=== PATIENT | male | born 1990 | race Caucasian/White ===

== ENCOUNTER 2017-04-01 17:24 | Emergency (ER) | payer OTHER ==
[2017-04-01 17:30] VITALS: BP 122/74; BMI 27.1
--- NOTE | 2017-04-01 18:18 | DR.GENAD ---
HPI - PCP Primary Care Physician: NFD - HPI Comment HPI Comment: CELLULITIS PRWESENT. NO FEVER. REDNESS INCREASING. - Complaint/Symptoms Chief Complaint Doctors Comments: LACERATIN RIGHT KNEE. Chief Complaint:: PT C/O ABCESS TO HIS RIGHT KNEE ....THAT STARTED A FEW DAYS AGO PT DOES NOT KNOW WHAT CAUSED IT .. HX STAPH.. Self Treatment fo Chief Complaint: PTS STATES PAIN HAS BEEN GETTING WORSE.. - Nurses notes reviewed Nurses Notes Review: Yes - Source History Provided: Patient - Mode of Arrival Mode of Arrival: Ambulatory - Timing Onset of Chief Complaint: 03/28/17 - Duration Duration: Constant Duration: Days - Severity Severity: Moderate PMH - PMH Past Medical History: No Past Surgical History: No Surgical History: No History - Family History History of Family Medical Conditions: Yes Family Medical History: Diabetes Mellitus, Cancer, NC, Coronary Artery Disease, Heart Failure, Sudden Cardiac , Hypertension - Social History Does patient currently use any type of tobacco product: No Have you used tobacco products in the last 12 months: No Type of Tobacco Use: None Does any household member use tobacco: No Alcohol Use: None Do you use any recreational Drugs:: No Lives With: Family Lives Where: Home - infectious screening In the last 2 months have you had wt loss of >10#?: NO Have you had fever, night sweats or hemotysis?: No Have you traveled outside the country in the last 6 months?: No Isolation: Standard ROS - Review of Systems Constitutional: No Symptoms Reported Eyes: No Symptoms Reported ENTM: No Symptoms Reported Respiratoy: No Symptoms Reported Cardiovascular: No Symptoms Reported Gastrointestinal/Abdominal: No Symptoms Reported Genitourinary: No Symptoms Reported Neurological: No Symptoms Reported Musculoskeletal: No Symptoms Reported, Right, Leg, Knee (PAIN AND REDNESS.) Integumentary: Other (REDNESS AND PAIN RIGHT KNEE.) Hematologic/Lymphatic: No Symptoms Reported Endocrine: No Symptoms Reported All Other Systems: Reviewed and Negative PE - Vital Signs Vitals: Temperature 98.4 F Pulse Rate 60 Respiratory Rate 18 Blood Pressure 122/74 O2 Sat by Pulse Oximetry 96 - General Limitations: No Limitations General Appearance: In No Apparent Distress - Head Head Exam: Normal Inspection - Eyes Eye exam: Normal Appearance - ENT ENT Exam: Normal External Ear Exam External Ear Exam: Normal External Inspection TM/Canal Exam: Bilateral Normal Nose Exam: Normal Nose Exam Mouth Exam: Normal Inspection Throat Exam: Normal Inspection - Neck Neck Exam: Trachea Midline - Chest Chest Inspection: Symmetric Chest Wall Rise - Respiratory Respiratory Exam: Normal Lung Sounds Bilat Respiratory Exam: Bilateral Clear to Auscultation - Cardiovascular Cardiovascular Exam: Regular Rate, Normal Rhythm, Normal Heart Sounds - Abdominal Exam Abdominal Exam: Normal Bowel Sounds, Soft. negative: Tenderness - Extremities Extremities Exam: Tenderness (RT KNEE REDNESS AND TENDERNESS.), Joint Swelling ( RT KNEE.) - Back Back Exam: Normal Inspection - Neurologic Neurological Exam: Alert, Oriented X3 - Psychiatric Psychiatric Exam: Anxious - Skin Skin Exam: Erythema MDM - Additional Information Additional Information Obtained From: Family - Differential Diagnosis Differential Diagnosis: CELLULITIS, ABSCESS. Course - Treatment Treatment: SEE ORDERS. - Education/Counseling Education/Counseling: Patient, Family, Education Educated On: Treatment, Diagnosis, Needs for Follow Up ROR - Labs Reviewed Laboratory Results Reviewed?: Yes Result Diagrams: 04/01/17 18:30 04/01/17 18:30 Laboratory: WBC 8.6 X10^3/uL (3.6-10.0) 04/01/17 18:30 RBC 4.40 X10^6/uL (4.7-6.0) L 04/01/17 18:30 Hgb 13.5 g/dL (13.5-18.0) 04/01/17 18:30 Hct 38.9 % (42.0-54.0) L 04/01/17 18:30 MCV 88.4 fL (80.0-100.0) 04/01/17 18:30 MCH 30.8 pg (27.0-34.0) 04/01/17 18:30 MCHC 34.8 g/dL (33.0-35.0) 04/01/17 18:30 RDW 13.0 % (11.6-16.5) 04/01/17 18:30 Plt Count 242 X10^3/uL (150.0-450.0) 04/01/17 18:30 MPV 7.5 fL (7.4-11.0) 04/01/17 18:30 Neut % 69.8 % (42.0-75.0) 04/01/17 18:30 Lymph % 20.9 % (21.0-51.0) L 04/01/17 18:30 [place] % 6.7 % (0.0-13.0) 04/01/17 18:30 Eos % 1.8 % (0.9-2.9) 04/01/17 18:30 Baso % 0.8 % (0.2-1.0) 04/01/17 18:30 Neut # 6.0 x10^3/uL (2.2-4.8) H 04/01/17 18:30 Lymph # 1.8 X10^3/uL (1.3-2.9) 04/01/17 18:30 [place] # 0.6 x10^3/uL (0.3-0.8) 04/01/17 18:30 Eos # 0.2 x10^3/uL (0.0-0.2) 04/01/17 18:30 Baso # 0.1 X10^3/uL (0.0-0.1) 04/01/17 18:30 Absolute Nucleated RBC 0.0 /100WBC 04/01/17 18:30 Sodium 139 mmol/L (136-145) 04/01/17 18:30 Corrected Sodium TNP 04/01/17 18:30 Potassium 4.7 mmol/L (3.5-5.1) 04/01/17 18:30 Chloride 104 mmol/L (98-107) 04/01/17 18:30 Carbon Dioxide 32.2 mmol/L (21-32) H 04/01/17 18:30 BUN 13 mg/dL (7-18) 04/01/17 18:30 Creatinine 0.98 mg/dL (0.70-1.30) 04/01/17 18:30 Est GFR (MDRD) Af Amer > 60 (>60) 04/01/17 18:30 Est GFR (MDRD) Non-Af > 60 (>60) 04/01/17 18:30 Glucose 98 mg/dL (65-99) 04/01/17 18:30 Calcium 8.6 mg/dL (8.5-10.1) 04/01/17 18:30 Corrected Calcium TNP 04/01/17 18:30 Total Bilirubin 0.40 mg/dL (0.2-1.0) 04/01/17 18:30 AST 27 Units/L (15-37) 04/01/17 18:30 ALT 25 Units/L (12-78) 04/01/17 18:30 Alkaline Phosphatase 66 Units/L (46-116) 04/01/17 18:30 C-Reactive Protein 17.80 mg/L (0-3.0) H 04/01/17 18:30 Total Protein 7.6 g/dL (6.4-8.2) 04/01/17 18:30 Albumin 3.8 g/dL (3.4-5.0) 04/01/17 18:30 Globulin 3.8 g/dL (2.5-4.5) 04/01/17 18:30 Albumin/Globulin Ratio 1.0 Ratio (1.1-2.1) L 04/01/17 18:30 - XRAY XRAY Interpreted by: Radiologist XRAY Findings: REPORT DISCUSS WITH PATIENT. - Diagnosis Discharge Problem: Cellulitis and abscess of right lower extremity, Cellulitis of right knee - Discharge Plan Disposition: 01 HOME, SELF-CARE Condition: Stable Prescriptions: Clindamycin HCl 300 mg PO Q6H #40 cap Sulfamethoxazole-Trimethoprim [BACTRIM DS TAB 800/160 MG *] 1 tab PO Q8H #30 tab Tramadol HCl 50 mg PO 15 PRN #15 tablet PRN Reason: - Follow ups/Referrals Follow ups/Referrals: NFD,None [Primary Care Provider] - 3 days - Instructions Instructions: Cellulitis, Adult, [id number] Additional Instructions: RETURN TO ED IF WORSE.
[2017-04-01 18:40] LABS: BASOPHILS # (AUTO) 0.1 X10^3/uL (0.0-0.1); BASOPHILS % (AUTO) 0.8 % (0.2-1.0); EOSINOPHILS # (AUTO) 0.2 x10^3/uL (0.0-0.2); EOSINOPHILS % (AUTO) 1.8 % (0.9-2.9); HEMATOCRIT 38.9 % (42.0-54.0); HEMOGLOBIN 13.5 g/dL (13.5-18.0); LYMPHOCYTES # (AUTO) 1.8 X10^3/uL (1.3-2.9); LYMPHOCYTES % (AUTO) 20.9 % (21.0-51.0); MEAN CORPUSCULAR HEMOGLOBIN 30.8 pg (27.0-34.0); MEAN CORPUSCULAR HGB CONC 34.8 g/dL (33.0-35.0); MEAN CORPUSCULAR VOLUME 88.4 fL (80.0-100.0); MEAN PLATELET VOLUME 7.5 fL (7.4-11.0); MONOCYTES # (AUTO) 0.6 x10^3/uL (0.3-0.8); MONOCYTES % (AUTO) 6.7 % (0.0-13.0); NEUTROPHILS % (AUTO) 69.8 % (42.0-75.0); PLATELET COUNT 242 X10^3/uL (150.0-450.0); WHITE BLOOD COUNT 8.6 X10^3/uL (3.6-10.0)
[2017-04-01 18:53] LABS: ALANINE AMINOTRANSFERASE 25 Units/L (12-78); ALBUMIN 3.8 g/dL (3.4-5.0); ALKALINE PHOSPHATASE 66 Units/L (46-116); ASPARTATE AMINO TRANSFERASE 27 Units/L (15-37); BLOOD UREA NITROGEN 13 mg/dL (7-18); CALCIUM 8.6 mg/dL (8.5-10.1); CARBON DIOXIDE 32.2 mmol/L (21-32); CHLORIDE 104 mmol/L (98-107); CREATININE 0.98 mg/dL (0.70-1.30); GLUCOSE 98 mg/dL (65-99); SODIUM 139 mmol/L (136-145); TOTAL PROTEIN 7.6 g/dL (6.4-8.2); eGFR BLACK RACES > 60 (>60); eGFR NON BLACK RACES > 60 (>60)
--- NOTE | 2017-04-01 19:13 | RAD ---
Right knee, three views Indication: Cellulitis Comparison: None Findings: No acute fracture, malalignment or bony destruction of the right knee is identified. Joint spaces are preserved without appreciable arthropathy. There is no significant joint effusion. There is moderate edema of the prepatellar and distal anterior thigh soft tissues. No soft tissue gas iban ntified. Impression: No acute osseous abnormality. Moderate edema of the prepatellar and distal anterior thigh soft tissues, likely reflecting cellulit is given patient history. Reported By:
[2017-04-01] MEDS ORDERED: CLEOCIN PO ONE (19:56)
[2017-04-01] MEDS ORDERED: BACTRIM DS TAB PO ONE ×2 (19:56→20:11)
[2017-04-01] MEDS ORDERED: TORADOL TAB PO ONE ×2 (19:57→20:10)
[2017-04-01] MEDS ORDERED: CLEOCIN ONE (20:10)
== END 2017-04-01 20:27 | disposition home or self-care (01) ==
LOC: ER 17:33
DX: L03.115 Cellulitis of right lower limb (principal); L02.415 Cutaneous abscess of right lower limb
CPT/HCPCS: 36415; 73560; 80053; 85025; 86140; 87040; 99283

== ENCOUNTER → 2017-05-29 | Outpatient (CLI) | payer OTHER ==
--- NOTE | 2017-05-30 10:04 | RAD ---
HISTORY: PA and lateral chest Study: Dyspnea and chest pain Comparison: None Findings: The trachea is midline. The cardiac silhouette is unremarkable. The lungs are clear without focal i nfiltrate or effusion. The bony thorax is unremarkable. IMPRESSION: 1. No acute cardiopulmonary disease. Reported By:
== END ==
LOC: RAD 16:15
PROVIDERS: ATTEND Nurse Practitioner Family
DX: R06.09 Other forms of dyspnea (principal); R07.89 Other chest pain
CPT/HCPCS: 36415; 71020; 85378